=== PATIENT | female | born 2005 | race Caucasian/White ===

== ENCOUNTER 2024-05-18 00:52 | Emergency (ER) | payer MEDICAID ==
[~2024-05-18] VITALS: Ht 165.1 cm; Wt 54.5 kg
[2024-05-18 01:04] VITALS: TEMP 98.9
[2024-05-18] MEDS ORDERED: AMOX-580 PO (01:09)
[2024-05-18] MEDS ORDERED: NAPR-56 PO (01:09)
[2024-05-18] MEDS: amox tr/potassium clavulanate 875/125mg TAB PO ONE (01:16)
[2024-05-18] MEDS: ketorolac trometh 30MG/ML vial 30 MG/ML VIAL IM ONE (01:17)
[2024-05-18 01:23] VITALS: BP 124/80; PULSE 74; RESP 18; O2SAT 99
== END 2024-05-18 01:34 | disposition home or self-care (01) ==
LOC: ER 00:53
DX: K04.7 Periapical abscess without sinus (principal); F17.200 Nicotine dependence, unspecified, uncomplicated
CPT/HCPCS: 96372; 99283; J1885